=== PATIENT | female | born 1950 | race Caucasian/White ===

== ENCOUNTER 2016-07-05 05:41 | Day surgery (SDC) | payer OTHER ==
[~2016-07-05] VITALS: Ht 170.2 cm; Wt 68.0 kg
[~2016-07-05 05:41] MED LIST: CELEBREX200 MG PO; PRAVACHOL40 MG PO; PREMARIN0.625 MG PO; SINEQUAN25 MG PO; SYNTHROID137 MCG PO; ZOLOFT50 MG PO
[2016-07-05 06:16] VITALS: BP 138/84
[2016-07-05 10:27] VITALS: BP 136/82
[2016-07-05 11:34] VITALS: BP 135/75
[2016-07-05 12:47] VITALS: BP 120/62
== END 2016-07-05 12:54 | disposition home or self-care (01) ==
LOC: SDC 05:41
DX: M19.011 Primary osteoarthritis, right shoulder (principal); E03.9 Hypothyroidism, unspecified; J45.909 Unspecified asthma, uncomplicated; Z79.899 Other long term (current) drug therapy
CPT/HCPCS: C1713; J0330; J0690; J1100; J2250; J2405; J2795; J3010; J7050